=== PATIENT | male | born 1945 | race Caucasian/White ===

== ENCOUNTER 2016-09-25 13:00 | Emergency (ER) | payer MEDICARE ==
[2016-09-25 16:10] LABS: BASOPHIL# 0.1 X 10^3uL (0.0-0.1); BASOPHILS 0.7 % (0.0-2.0); EOSINOPHILS 2.6 % (0.0-6.0); EOSINOPHILS# 0.2 X 10^3uL (0.0-0.4); HEMATOCRIT 34.3 % (42.0-54.0); HEMOGLOBIN 11.4 g/dL (14.0-18.0); LYMPHOCYTES 20.1 % (20.0-40.0); LYMPHOCYTES# 1.7 X 10^3uL (0.8-3.8); MEAN CELL VOLUME 86.8 fL (80.0-100.0); MEAN CORPUS. HGB CONCENTRATION 33.3 g/dL (32.0-36.0); MEAN CORPUSCULAR HEMOGLOBIN 28.9 pg (29.0-35.0); MEAN PLATELET VOLUME 10.9 fL (7.4-10.4); MONOCYTES 9.5 % (2.0-10.0); MONOCYTES# 0.8 X 10^3uL (0.2-1.0); NEUTROPHILS 67.1 % (54.0-75.0); NEUTROPHILS# 5.5 X 10^3uL (2.6-6.7); PLATELET COUNT 126 X 10^3uL (130-440); RED BLOOD COUNT 3.96 X 10^6uL (4.20-6.10); RED CELL DISTRIBUTION WIDTH 13.6 % (11.5-14.5); WHITE BLOOD COUNT 8.3 X 10^3uL (3.9-10.7)
[2016-09-25 16:16] LABS: A/G RATIO 1.3; ALBUMIN 3.7 g/dL (3.5-5.0); ALKALINE PHOSPHATASE 73 U/L (38-126); ALT 34 U/L (21-72); AST 28 U/L (17-59); BILIRUBIN, TOTAL 0.4 mg/dL (0.2-1.3); BLOOD UREA NITROGEN 25 mg/dL (9-20); CALCIUM 8.5 mg/dL (8.4-10.2); CHLORIDE 100 mmol/L (98-107); EST GLOMERULAR FILTRATION RATE > 60 mL/min; GLUCOSE 83 mg/dL (70-100); SODIUM 135 mmol/L (137-145); TOTAL PROTEIN 6.6 g/dL (6.3-8.2)
--- NOTE | 2016-09-25 17:57 | ER NURSING DOCUMENTATION ---
Nurse's Notes [facility] Name:Gal Forrest Age:70 yrs Sex:Male :1945 Arrival Date:09/25/2016 Time:13:00 BedTrauma-A Private MD:Roman Oshea Diagnosis:Malaise & Fatigue;Opiate Poisoning-possible Presentation: 09/25 13:03 Presenting complaint: states: that pt. took 5 Dilaudid tabs since 0900 this ut1 morning. Pt. follows instruction but only intermittently. Pt. had total knee replacement this past Thursday. Transition of care: Home. Notified ED Physician of patient's arrival and CC Dr. Felipe notified. 13:03 Acuity: TIERA 3 sc1 13:03 Method Of Arrival: Private Vehicle ut1 Triage Assessment: 13:17 General: Appears in no apparent distress, Behavior is listless. Respiratory: No bw2 deficits noted. Historical: - Allergies: GABAPENTIN; - Home Meds: 1. Plavix 2. Coumadin Oral - PMHx: CAD; - PSHx: CHOLECYSECTOMY; - Tetanus: < 10 years. - Ebola Screening: : Patient negative for fever greater than or equal to 101.5 degrees Fahrenheit, and additional compatible Ebola Virus Disease symptoms. Patient denies exposure to infectious person. Patient denies travel to an Ebola-affected area in the 21 days before illness onset. No symptoms or risks identified at this time. . - Immunization history: Flu Vaccine < 1 year. - Social history: Smoking status: Patient states was never smoker of tobacco. - Unable to obtain history due to: altered mental status. Screenin:14 Infectious Disease Risk None. Abuse screen: Denies threats or abuse. Nutritional bw2 screening: No deficits noted. Assessment: 13:13 See Triage Assessment done by same RN. Pain: Complains of pain in right knee. bw2 Vital Signs: 13:12 BP 122 / 66; Pulse 94; Resp 17; Temp 98; Pulse Ox 84% on R/A; Weight 90.72 kg; Height 6 bw2 ft. (182.88 cm); Pain 5/10; 13:18 Pulse Ox 98% on 2 lpm NC; bw2 13:48 BP 87 / 61 (auto/); Pulse 84; Resp 16; Pulse Ox 94% on 2 lpm NC; bw2 14:27 BP 113 / 59; Pulse 85; Resp 18; Pulse Ox 93% 1 lpm ; bw2 17:55 BP 145 / 66; Pulse 81; Resp 18 S; Pulse Ox 94% on R/A; bw2 13:12 Body Mass Index 27.12 (90.72 kg, 182.88 cm) bw2 ED Course: 13:01 Patient arrived in ED. ama 13:01 Roman Oshea DO is Private Physician. ama 13:05 Triage completed. sc1 13:08 Nayely Solis is Primary Nurse. bw2 13:14 Valuables Remains with patient. Cardiac Monitoring On for Nurse Monitoring only. Pulse bw2 Ox - RN Monitoring Only NIBP On - RN Monitoring Only. 13:15 Inserted peripheral IV: 18 gauge in left antecubital area and blood collected. bw2 13:48 pt oxygen titrated to 1, pt did not tolerate well. oxygen then readjusted to 2 L. bw2 13:52 Bon Felipe MD is Attending Physician. tl1 15:51 Wound care to abrasion, located on left eye was cleaned with soap and water, Patient sc1 tolerated well. 17:31 Roman Oshea DO is Referral Physician. tl1 Administered Medications: 13:58 Drug: NS 0.9% 1000 ml; Route: IV; Rate: bolus; Site: left antecubital; bw2 16:09 Follow up: IV Status: Completed infusion bw2 Output: 15:33 Urine: 400ml (Voided); Total: 400ml. bw2 17:54 Urine: 600ml (Voided); Total: 1000ml. bw2 Outcome: 17:32 Discharge ordered by . tl1 17:55 Discharged to home via wheelchair, with family. bw2 17:55 Condition: good 17:55 Discharge Assessment: Patient awake, alert and oriented x 3. No cognitive and/or functional deficits noted. Patient verbalized understanding of disposition instructions. 17:55 Discharge instructions given to patient, family, Instructed on discharge instructions, follow up and referral plans. medication usage, Demonstrated understanding of instructions, medications. 17:56 Patient left the ED. bw2 Signatures: Nanci Jeffrey RN RN st Campbell, Sandy, RN RN sc1 Davon Pisano, Reg Reg Bon Baker MD MD 1 Nayely Solis bw2
--- NOTE | 2016-09-25 17:57 | ER PHYSICIAN DOCUMENTATION ---
Physician Documentation [facility] Name:Gal Forrest Age:70 yrs Sex:Male :1945 Arrival Date:09/25/2016 Time:13:00 BedTrauma-A Private MD:Roman Oshea ED [place] Disposition: 09/26 20:26 Chart complete. tl1 Disposition: 09/25/16 17:32 Discharged to Home/Self Care. Impression: Malaise & Fatigue, Opiate Poisoning - possible. - Condition is Good. - Discharge Instructions: DRUG OVERDOSE Accidental Adult - OVERDOSE, Accidental (Adult), OPIATE OVERDOSE - OVERDOSE, Opiate. - Medical Reconciliation form form. - Follow up: Roman Oshea DO; When: 1 - 2 days; Reason: Recheck today's complaints, Continuance of care. - Problem is new. - Symptoms have improved. - Notes: You may have taken too many dilaudid tablets. Make sure your dispenses these until you have returned to your baseline and are unlikely to overdose again. OK to increase your dilaudid dose to 8 mg every 4 hours, not to exceed [address] Castillo for guidance, or Dr Oshea, if your pain is not adequately controlled. HPI: 09/25 13:10 This 70 yrs old Male presents to ER via Private Vehicle with complaints of tl1 POSSIBLE Overdose. 13:10 He had a right TKR 2 days ago. He went home yesterday and has had a fair amount of tl1 pain. He chronically has been taking a total of 5 8mg dilaudid tablets a day. This morning his knee was sore and he took 8 mg of dilaudid po, and then another about 2-3 hours later, at roughly 0900. After that he may (or may not - he cannot recall) have taken 3 more dilaudid tablets. Home health came from about [id number] and noticed that he seemed unusually groggy and fatigued. There was concern, after this purported ingestion of an additional 3 dilaudid tablets, that he could have respiratory difficulty, and he was brought here for monitoring. He feels groggy, but otherwise has no complaints. No n/v, hallucinations, dyspnea.. Historical: - Allergies: GABAPENTIN; - Home Meds: 1. Plavix 2. Coumadin Oral - PMHx: CAD; - PSHx: CHOLECYSECTOMY; - Tetanus: < 10 years. - Ebola Screening: : Patient negative for fever greater than or equal to 101.5 degrees Fahrenheit, and additional compatible Ebola Virus Disease symptoms. Patient denies exposure to infectious person. Patient denies travel to an Ebola-affected area in the 21 days before illness onset. No symptoms or risks identified at this time. . - Immunization history: Flu Vaccine < 1 year. - Social history: Smoking status: Patient states was never smoker of tobacco. - Unable to obtain history due to: altered mental status. ROS: 14:00 Constitutional: Positive for fatigue, malaise, Negative for chills, fever. tl1 14:00 Eyes: Negative for visual disturbance. 14:00 Cardiovascular: Negative for chest pain, orthopnea, palpitations, paroxysmal nocturnal dyspnea. 14:00 Respiratory: Negative for cough, pleurisy, shortness of breath, wheezing. 14:00 Neuro: Positive for speech changes, Negative for headache, numbness. 14:00 All other systems are negative. Exam: 14:01 Constitutional: The patient appears in no acute distress, awake, comfortable, tl1 non-diaphoretic, non-toxic, well developed, well hydrated, well groomed, well nourished, Drowsy. 14:01 Head/face: Exam is negative for acute changes. 14:01 Eyes: Pupils: equal, round, and reactive to light and accomodation, right pupil is approximately 2 mm(s), left pupil is approximately 2 mm(s). 14:01 ENT: Mouth: Oral mucosa: pink and intact, moist, Posterior pharynx: is normal. 14:01 Neck: ROM/movement: is normal, is supple, Lymph nodes: no appreciated lymphadenopathy. 14:01 Chest/axilla: Palpation: is normal. 14:01 Cardiovascular: Rate: normal, Rhythm: regular, Heart sounds: normal, Edema: is not appreciated, JVD: is not appreciated. 14:01 Respiratory: Respirations: normal, Breath sounds: are normal, no decreased breath sounds, no rales, rhonchi, no stridor, no wheezing. 14:01 Abdomen/GI: Palpation: abdomen is soft and non-tender. 14:01 Musculoskeletal/extremity: Exam is negative for acute changes. 14:01 Skin: Exam negative for acute changes. 14:01 Neuro: Orientation: is normal, Mentation: is normal, Memory: is normal, Cranial nerves: grossly normal, Cerebellar function: Motor: moves all fours. 14:01 Psych: Behavior/mood is pleasant, cooperative, Affect is flat, Oriented to person, place, time, Patient has no thoughts/intents to harm self or others. Judgement / Insight is normal. Vital Signs: 13:12 BP 122 / 66; Pulse 94; Resp 17; Temp 98; Pulse Ox 84% on R/A; Weight 90.72 kg; Height 6 bw2 ft. (182.88 cm); Pain 5/10; 13:18 Pulse Ox 98% on 2 lpm NC; bw2 13:48 BP 87 / 61 (auto/); Pulse 84; Resp 16; Pulse Ox 94% on 2 lpm NC; bw2 14:27 BP 113 / 59; Pulse 85; Resp 18; Pulse Ox 93% 1 lpm ; bw2 17:55 BP 145 / 66; Pulse 81; Resp 18 S; Pulse Ox 94% on R/A; bw2 13:12 Body Mass Index 27.12 (90.72 kg, 182.88 cm) bw2 MDM: 13:52 Patient medically screened. tl1 15:00 Data reviewed: vital signs, nurses notes, and as a result, I will discharge patient. tl1 Counseling: I had a detailed discussion with the patient and/or guardian regarding: the historical points, exam findings, and any diagnostic results supporting the discharge/admit diagnosis, the need for outpatient follow up, for definitive care, for a recheck, with the patient's primary care provider, a orthopedic surgeon. Response to treatment: the patient's symptoms have markedly improved after treatment, and as a result, I will discharge patient. ED course: He was observed for several hours. His mental status and respiratory status returned to normal and he was able to rest comfortably without inadequate ventilation and oxygenation. He and his are comfortable going home and following up with Dr Oshea and His orthopedic surgeon tomorrow for further guidance about pain control. For now, his has agreed to dispense his pain medication.. 09/25 16:13 Order name: CBC AUTO DIF, MDIF/RMOR IF IND; Complete Time: 20:29 EDMS 09/26 20:28 Interpretation: WHITE BLOOD COUNT 8.3; HEMOGLOBIN 11.4; HEMATOCRIT 34.3; PLATELET COUNT tl1 126. 09/25 16:25 Order name: COMPREHENSIVE METABOLIC PANEL; Complete Time: 20:29 EDMS 09/26 20:29 Interpretation: SODIUM 135; POTASSIUM 4.0; CHLORIDE 100; CARBON DIOXIDE 24; GLUCOSE 83; tl1 BLOOD UREA NITROGEN 25; CREATININE 1.2. 09/25 16:40 Order name: URINE DRUG SCREEN, QUAL; Complete Time: 20:29 EDMS Dispensed Medications: 13:58 Drug: NS 0.9% 1000 ml; Route: IV; Rate: bolus; Site: left antecubital; bw2 16:09 Follow up: IV Status: Completed infusion bw2 Signatures: Chantelle Comer RN RN nv1 Bon Felipe MD MD tl1 Nayely Solis bw2
== END 2016-09-25 17:57 | disposition home or self-care (01) ==
LOC: ER 13:00
DX: R53.81 Other malaise (principal); R53.83 Other fatigue; T40.2X1A Poisoning by other opioids, accidental (unintentional), initial encounter; G89.18 Other acute postprocedural pain; Z98.890 Other specified postprocedural states; Z96.659 Presence of unspecified artificial knee joint; Z79.01 Long term (current) use of anticoagulants; Z79.02 Long term (current) use of antithrombotics/antiplatelets
CPT/HCPCS: 71010; 80053; 80305; 85025; 96360; 96361; 99283; 99284